=== PATIENT | male | born 2000 | race Caucasian/White ===

== ENCOUNTER 2024-02-28 18:22 | Emergency (ER) | payer OTHER ==
[~2024-02-28] VITALS: Ht 175.3 cm; Wt 92.0 kg
[2024-02-28] MEDS: KETOROLAC 30 MG/ML 1ML VIAL IM ONE (19:27)
[2024-02-28] MEDS: LIDOCAINE 5% (LIDODERM) PATCH TD ONE (19:27)
[2024-02-28 21:10] VITALS: BP 134/68; TEMP 99.1; O2SAT 100
== END 2024-02-28 21:14 | disposition home or self-care (01) ==
LOC: M ED 18:22
DX: M54.50 Low back pain, unspecified (principal); F10.10 Alcohol abuse, uncomplicated
CPT/HCPCS: 72110; 96372; 99283; J1885